=== PATIENT | male | born 1985 | race African-American/Black ===

== ENCOUNTER 2020-04-07 13:27 | Inpatient (IN) | payer OTHER ==
[~2020-04-07] VITALS: Ht 167.6 cm; Wt 90.5 kg
[2020-04-07 18:31] LABS: PLATELET COUNT 302 K/uL (142-355)
[2020-04-07 18:35] VITALS: BP 122/75; TEMP 99.4; Ht 167.6 cm; Wt 90.5 kg
[2020-04-07 18:48] LABS: POTASSIUM 4.1 mmol/L (3.6-5.2)
[2020-04-07] MEDS ORDERED: VITAMIN C500 M5 PO (19:17)
[2020-04-07] MEDS ORDERED: ASPI-93 PO (19:18)
[2020-04-07] MEDS ORDERED: FAMOTIDINE40 MG PO (19:18)
[2020-04-07] MEDS ORDERED: ONDA4TAB3 PO (19:19)
[2020-04-07] MEDS ORDERED: ZINC-220 PO (19:20)
[2020-04-07] MEDS ORDERED: [UNRECOGNIZED DRUG - CODE] PO (19:20)
[2020-04-07] MEDS ORDERED: ZITHROMAX500 MG PO (19:22)
[2020-04-07 20:00] VITALS: BP 136/72; TEMP 103
[2020-04-08 00:13] VITALS: BP 115/75; TEMP 99.9
[2020-04-08 04:00] VITALS: BP 129/78; TEMP 102.6
[2020-04-08 06:14] LABS: PLATELET COUNT 298 K/uL (142-355)
[2020-04-08 06:45] LABS: POTASSIUM 4.2 mmol/L (3.6-5.2)
[2020-04-08 08:00] VITALS: BP 129/84; TEMP 99.3
[2020-04-08 12:00] VITALS: BP 128/80; TEMP 98.7
[2020-04-08 16:00] VITALS: BP 145/89; TEMP 98.8
[2020-04-08 20:00] VITALS: BP 147/85; TEMP 103
[2020-04-09] VITALS (7 sets, daily range): BP systolic 116–140; BP diastolic 71–85; TEMP 97.9–100
[2020-04-09 04:52] LABS: PLATELET COUNT 329 K/uL (142-355)
[2020-04-09 05:40] LABS: POTASSIUM 4.2 mmol/L (3.6-5.2)
[2020-04-09 10:46] LABS: POTASSIUM 4.1 mmol/L (3.6-5.2)
[2020-04-09 10:57] LABS: PLATELET COUNT 327 K/uL (142-355)
[2020-04-10 03:38] VITALS: BP 142/82; TEMP 98.3
[2020-04-10 04:33] LABS: PLATELET COUNT 343 K/uL (142-355)
[2020-04-10 04:52] LABS: POTASSIUM 4.3 mmol/L (3.6-5.2)
[2020-04-10 08:00] VITALS: BP 131/92; TEMP 97.7
[2020-04-10 12:00] VITALS: BP 125/87; TEMP 98.1
[2020-04-10 16:00] VITALS: BP 146/83; TEMP 98.8
[2020-04-10 20:23] VITALS: BP 134/86; TEMP 98.8
[2020-04-10 23:48] VITALS: BP 130/75; TEMP 98.2
[2020-04-11 03:38] VITALS: BP 115/68; TEMP 98
[2020-04-11 05:44] LABS: POTASSIUM 4.2 mmol/L (3.6-5.2)
[2020-04-11 05:54] LABS: PLATELET COUNT 402 K/uL (142-355)
[2020-04-11 08:00] VITALS: BP 155/84; TEMP 98.2
[2020-04-11 12:00] VITALS: BP 129/87; BP 139/77; TEMP 97; TEMP 97.8
[2020-04-11 16:00] VITALS: BP 139/77; TEMP 97.8
[2020-04-11 20:00] VITALS: BP 170/88; TEMP 98
[2020-04-12] VITALS: BP 173/93; TEMP 98.2
[2020-04-12 04:00] VITALS: BP 118/81; TEMP 98.5
[2020-04-12 06:12] LABS: POTASSIUM 4.5 mmol/L (3.6-5.2)
[2020-04-12 06:18] LABS: PLATELET COUNT 469 K/uL (142-355)
[2020-04-12 08:00] VITALS: BP 134/92; TEMP 98.3
[2020-04-12 12:00] VITALS: BP 116/73; TEMP 98.6
[2020-04-12 16:00] VITALS: BP 126/77; TEMP 98.2
== END 2020-04-12 18:15 | disposition home or self-care (01) | DRG 178 ==
LOC: MED/SURG 13:27
PROVIDERS: ADMIT Family Medicine
DX: U07.1 COVID-19 (principal); E46 Unspecified protein-calorie malnutrition; E86.0 Dehydration; D64.89 Other specified anemias; R63.0 Anorexia; R09.02 Hypoxemia
CPT/HCPCS: 36415; 80053; 80074; 82728; 83735; 84100; 85007; 85027; 85379; 86140; 87040; 87535; 93005; 94667; 94668; 94760; G0432; J0456; J0696; J1100; J1650; J1885; J3475

== ENCOUNTER 2020-04-13 09:56 | Outpatient (CLI) | payer OTHER ==
[~2020-04-13 09:56] MED LIST: ASPI-93 PO; FAMOTIDINE40 MG PO; ONDA4TAB3 PO; VITAMIN C500 M5 PO; ZINC-220 PO; ZITHROMAX500 MG PO; [UNRECOGNIZED DRUG - CODE] PO
== END 2020-04-13 22:36 | disposition home or self-care (01) ==
LOC: LAB 09:56
PROVIDERS: Family Medicine
DX: Z13.0 Encounter for screening for diseases of the blood and blood-forming organs and certain disorders involving the immune mechanism (principal)
CPT/HCPCS: 36415; 80053

== ENCOUNTER 2020-04-14 12:53 | Outpatient (CLI) | payer OTHER ==
[2020-04-14 13:54] LABS: POTASSIUM 4.5 mmol/L (3.6-5.2)
== END 2020-04-14 19:22 | disposition home or self-care (01) ==
LOC: LAB 12:53
PROVIDERS: Nurse Practitioner Family
DX: R74.8 Abnormal levels of other serum enzymes (principal)
CPT/HCPCS: 80053

== ENCOUNTER 2020-10-21 11:57 | Outpatient (CLI) | payer OTHER | END 2020-10-21 20:14 | disposition home or self-care (01) | LOC: RAD 11:57 | PROVIDERS: ATTEND Nurse Practitioner Family | DX: R05 Cough (principal) ==

== ENCOUNTER 2021-12-21 11:52 | Outpatient (CLI) | payer OTHER | END 2021-12-21 19:00 | disposition home or self-care (01) | LOC: RAD 11:52 | PROVIDERS: ATTEND Nurse Practitioner Family | DX: M25.562 Pain in left knee (principal) ==